=== PATIENT | female | born 1980 | race Caucasian/White ===

== ENCOUNTER 2018-02-21 17:14 | Emergency (ER) | payer MEDICAID ==
[~2018-02-21] VITALS: Ht 167.6 cm; Wt 88.6 kg
[2018-02-21 17:38] VITALS: Ht 167.6 cm; Wt 88.6 kg
[2018-02-21] MEDS ORDERED: OMEPRAZOLE20 M1 PO (17:39)
[2018-02-21] MEDS ORDERED: LEXAPRO20 MG PO (17:39)
[2018-02-21] MEDS ORDERED: CYCLOBENZAPRINE10 MG PO (20:07)
[2018-02-21 20:35] VITALS: BP 136/87
== END 2018-02-21 20:35 | disposition home or self-care (01) ==
LOC: D.ER 17:14
DX: S46.911A Strain of unspecified muscle, fascia and tendon at shoulder and upper arm level, right arm, initial encounter (principal); W18.31XA Fall on same level due to stepping on an object, initial encounter; Y93.89 Activity, other specified; Y92.019 Unspecified place in single-family (private) house as the place of occurrence of the external cause; F17.200 Nicotine dependence, unspecified, uncomplicated

== ENCOUNTER 2018-12-21 01:54 | Observation (INO) | payer MEDICAID ==
[~2018-12-21] VITALS: Ht 167.6 cm; Wt 79.1 kg
[~2018-12-21 01:54] MED LIST: CYCLOBENZAPRINE10 MG PO; LEXAPRO20 MG PO; OMEPRAZOLE20 M1 PO
[2018-12-21 02:14] LABS: BASOPHILS 0.2 % (0-2); EOSINOPHILS 1.1 % (0-7); HEMATOCRIT 38.1 % (36.0-48.0); HEMOGLOBIN 12.6 g/dL (12-16); IMMATURE GRANULOCYTES 0.2 % (0-5); LYMPHOCYTES 28.4 % (15-50); MCH 30.5 pg (26.0-34.0); MCHC 33.1 g/dL (31.0-37.0); MCV 92.3 fL (80.0-100.0); MEAN PLATELET VOLUME 9.2 fL (7.4-10.4); MONOCYTES 7.5 % (2-11); NEUTROPHILS 62.6 % (40-80); PLATELET COUNT 412 10x3/uL (130-400); RBC 4.13 10x6/uL (4.00-5.40); RDW 14.2 % (11.5-14.5); WBC 16.1 10x3/uL (4.8-10.8)
[2018-12-21 02:29] LABS: ALBUMIN 3.4 g/dL (3.4-5.0); ALKALINE PHOSPHATASE 74 U/L (46-116); ALT (SGPT) 24 U/L (10-68); BILIRUBIN - TOTAL 0.16 mg/dL (0.2-1.3); CALC OSMOLALITY 276 mosm/kg (275-300); CALCIUM 8.7 mg/dL (8.5-10.1); CARBON DIOXIDE 24.5 mmol/L (21.0-32.0); CHLORIDE - SERUM 104 mmol/L (98-107); CREATININE - SERUM 0.7 mg/dL (0.6-1.3); GLUCOSE 109 mg/dL (74-106); POTASSIUM - SERUM 4.1 mmol/L (3.5-5.1); PROTEIN - SERUM 7.6 g/dL (6.4-8.2); SODIUM 138 mmol/L (136-145); UREA NITROGEN 12 mg/dL (7-18); eGFR NON AFRICAN AMERICAN > 90 mL/min (90-120)
[2018-12-21 02:39] LABS: THYROID STIMULATING HORMONE 2.95 uIU/mL (0.36-3.74)
[2018-12-21 02:51] LABS: UDS - AMPHET NEGATIVE QUAL (NEGATIVE); UDS - BARB NEGATIVE QUAL (NEGATIVE); UDS - BENZO NEGATIVE QUAL (NEGATIVE); UDS - COCAINE NEGATIVE QUAL (NEGATIVE); UDS - OPIATE NEGATIVE QUAL (NEGATIVE); UDS - PCP NEGATIVE QUAL (NEGATIVE); UDS - THC NEGATIVE QUAL (NEGATIVE)
[2018-12-21 02:53] LABS: APPEARANCE HAZY (CLEAR); BILIRUBIN NEGATIVE (NEGATIVE); COLOR YELLOW (YELLOW); EPITHELIAL CELLS 0-5 /hpf (0-5); GLUCOSE NEGATIVE (NEGATIVE); KETONE NEGATIVE (NEGATIVE); NITRITE NEGATIVE (NEGATIVE); PROTEIN TRACE mg/dL (NEGATIVE); RED CELLS - URINE 0-5 /hpf (0-5); SPECIFIC GRAVITY 1.015 (1.005-1.020); UROBILINOGEN NORMAL (NORMAL); WHITE CELLS - URINE 0-5 /hpf (NEGATIVE)
--- NOTE | 2018-12-21 04:02 | NUR ---
PT ARRIVED ON UNIT VIA WHEELCHAIR ESCORTED BY ER NURSE AND FAMILY MEMBERS. ORIENTED TO ROOM AND CALL LIGHT. TELEMETRY PLACED PER ORDER AND READING 90 SR AT THIS ASSESSMENT.
[2018-12-21 04:19] VITALS: BP 122/58; Ht 167.6 cm; Wt 79.1 kg
--- NOTE | 2018-12-21 04:39 | NUR ---
ADMISSION ASSESSMENT AND HISTORY COMPLETE.
--- NOTE | 2018-12-21 04:39 | NUR ---
PT GIVEN SANDWICH TRAY AND SODA FOR SNACK.
[2018-12-21 08:41] VITALS: BP 122/71
--- NOTE | 2018-12-21 10:16 | NUR ---
PT RESTING IN BED. NO SIGNS OF DISTRESS. IV TO RIGHT HAND PATENT NO REDNESS OR TENDERNESS. ON TELEMETRY 83 SR. DENIES ANY FURTHER NEED AT THIS TIME. CALL LIGHT IN REACH. BED LOW POSITION. FAMILY AT BEDSIDE.
--- NOTE | 2018-12-21 12:48 | NUR ---
DISCHARGE INSTRUCTIONS GIVEN. SEEMS TO UNDERSTAND INSTRUCTIONS. LEFT WITH [facility] TO GO TO ANOTHER [facility]. NO SIGNS OF DISTRESS. TELEMETRY OFF AND RETURNED.
== END 2018-12-21 12:50 | disposition other institution (70) ==
LOC: D.ER 01:54 → OBSVTIME 03:42 → D.MS 03:42
PROVIDERS: Family Medicine; ADMIT Internal Medicine Nephrology; ATTEND Internal Medicine Nephrology
DX: G81.91 Hemiplegia, unspecified affecting right dominant side (principal); F41.9 Anxiety disorder, unspecified; R20.2 Paresthesia of skin

== ENCOUNTER 2020-05-31 16:32 | Emergency (ER) | payer MEDICAID ==
[~2020-05-31] VITALS: Ht 167.6 cm; Wt 77.3 kg
[2020-05-31 16:37] VITALS: BP 156/83; Ht 167.6 cm; Wt 77.3 kg
[2020-05-31] MEDS ORDERED: PREDNISONE20 MG PO (16:58)
[2020-05-31] MEDS ORDERED: VALTREX1000 MG PO (16:58)
[2020-05-31] MEDS ORDERED: CEPHALEXIN500 M1 PO (17:00)
[2020-05-31] MEDS ORDERED: HYDROCODON-ACE1 EAC7 PO (17:04)
== END 2020-05-31 17:14 | disposition home or self-care (01) ==
LOC: D.ER 16:32
DX: L03.221 Cellulitis of neck (principal); B02.21 Postherpetic geniculate ganglionitis; E11.9 Type 2 diabetes mellitus without complications; K21.9 Gastro-esophageal reflux disease without esophagitis